=== PATIENT | male | born 1955 | race Caucasian/White ===

== ENCOUNTER 2020-01-11 15:14 | Inpatient (IN) | payer OTHER, MEDICARE ==
[2020-01-11] MEDS ORDERED: HYDROmorphone 1 MG/ML 1 ML SYRINGE IVP STA (15:21)
[2020-01-11] MEDS ORDERED: SODIUM CHLORIDE 0.9% 1,000 ML IV STA (15:21)
[2020-01-11] MEDS ORDERED: DIPH,PERTUS(ACELL)TETVAC-LF 0.5 ML VIAL IM ONE (15:21)
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
[2020-01-11] MEDS ORDERED: BACITRACIN/POLYMYX 500-10,000 UNIT/GM OINT 14 GM TUBE TOPICAL STA (15:43)
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
[2020-01-11 16:12] LABS: Basophils # (A) 0.1 k/uL (0-0.2); Basophils % (A) 1 %; Eosinophils # (A) 0.1 k/uL (0-0.7); Eosinophils % (A) 1 %; HCT 46.9 % (39.0-53.0); HGB 14.9 gm/dL (13.0-17.5); Lymphocytes # (A) 3.4 k/uL (1.0-4.8); Lymphocytes % (A) 16 %; MCH 30.2 pg (25.0-35.0); MCHC 31.7 g/dL (31.0-37.0); Mean Platelet Volume 7.5; Monocytes # (A) 0.6 k/uL (0-1.0); Monocytes % (A) 3 %; Neutrophils # (A) 17.3 k/uL (1.3-7.7); Neutrophils % (A) 80 %; Platelet Count 299 k/uL (150-450); RBC 4.93 m/uL (4.30-5.90); RDW 12.7 % (11.5-15.5); WBC 21.6 k/uL (3.8-10.6)
[2020-01-11 16:20] LABS: ALT 259 U/L (4-49); AST 271 U/L (17-59); African American GFR (CKD) >90 (>60 ml/min/1.73 sqM); Albumin 4.4 g/dL (3.5-5.0); Alcohol <10 mg/dL; Alkaline Phosphatase 77 U/L (38-126); Amylase 48 U/L (30-110); Anion Gap 7 mmol/L; Blood Urea Nitrogen 20 mg/dL (9-20); Calcium 9.5 mg/dL (8.4-10.2); Carbon Dioxide 26 mmol/L (22-30); Chloride 105 mmol/L (98-107); Glucose 162 mg/dL (74-99); Non-African American GFR(CKD) 80 (>60 ml/min/1.73 sqM); Potassium 4.2 mmol/L (3.5-5.1); Sodium 138 mmol/L (137-145); Total Bilirubin 0.4 mg/dL (0.2-1.3); Total Protein 7.2 g/dL (6.3-8.2)
[2020-01-11 16:24] LABS: INR 0.9 (<1.2); Partial Thromboplastin Time 21.9 sec (22.0-30.0); Prothrombin Time 9.6 sec (9.0-12.0)
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
[2020-01-11 16:43] LABS: Creatine Kinase 476 U/L (55-170)
[2020-01-11 16:52] LABS: Creatine Kinase MB 5.7 ng/mL (0.0-2.4)
[2020-01-11 16:56] LABS: Troponin I <0.012 ng/mL (0.000-0.034)
[2020-01-11] MEDS ORDERED: NALOXONE 0.4 MG/ML 1 ML VIAL IV PRN (17:03)
[2020-01-11] MEDS ORDERED: ONDANSETRON 4 MG/2 ML VIAL IVP PRN (17:03)
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
--- NOTE | 2020-01-11 17:39 | XR ---
EXAMINATION TYPE: XR shoulder complete RT DATE OF EXAM: 01/11/2020 COMPARISON: NONE HISTORY: Trauma TECHNIQUE: 4 views FINDINGS: There is comminuted fracture mid shaft of the right clavicle. There is comminuted fracture of the scapula including the glenoid. There is no dislocation. Humeral head is intact. There are mult iple right upper rib fractures. There is pleural thickening in the right upper lobe. There is atelect asis right lung base. IMPRESSION: Comminuted shoulder fracture as above. Rib fractures. Clavicle comminuted fracture.
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
[2020-01-11] MEDS: HYDROmorphone 1 MG/ML 1 ML SYRINGE IVP PRN ×2 (17:44→22:49)
[2020-01-11 18:06] LABS: Appearance,Urine Clear (Clear); Bacteria,Urine Rare /hpf; Bilirubin,Urine Negative (Negative); Blood,Urine Small (Negative); Color,Urine Yellow; Glucose,Urine (UA) Negative (Negative); Hyaline Casts,Urine 14 /lpf (0-2); Ketones,Urine Negative (Negative); Leukocyte Esterase,Urine Negative (Negative); Mucus,Urine Occasional /hpf; Nitrite,Urine Negative (Negative); PH, Urine 5.5 (5.0-8.0); Protein,Urine 1+ (Negative); RBC,Urine 4 /hpf (0-5); Specific Gravity,Urine 1.029 (1.001-1.035); Sperm,Urine Rare /hpf; Squamous Epithelial Cell,Urine <1 /hpf (0-4); Urobilinogen,Urine <2.0 mg/dL (<2.0); WBC,Urine 4 /hpf (0-5)
[2020-01-11 18:13] LABS: Amphetamine Screen,Urine Not Detected (NotDetected); Barbiturate Screen,Urine Not Detected (NotDetected); Benzodiazepines Screen,Urine Not Detected (NotDetected); Cocaine Screen,Urine Not Detected (NotDetected); Methadone Screen, Urine Not Detected (NotDetected); Opiate Screen,Urine Detected (NotDetected); Oxycodone Screen, Urine Not Detected (NotDetected); Phencyclidine Screen,Urine Not Detected (NotDetected); Tricyclic Antidepressant,Urine Not Detected (NotDetected); Urn Cannabinoid Scrn Not Detected (NotDetected)
[2020-01-11 18:49] LABS: Glucose,Whole Blood 163 mg/dL (75-99)
[2020-01-11] MEDS: HYDROcodone/APAP 5-325MG 1 EACH TAB PO PRN ×2 (18:58→22:49)
[2020-01-11] MEDS ORDERED: FUROSEMIDE 10 MG/ML 2 ML VIAL IV ONE (20:51)
[2020-01-11] MEDS: FAMOTIDINE 20 MG TAB PO SCH (22:45)
[2020-01-12] MEDS: KETOROLAC 15 MG/ML 1 ML VIAL IVP SCH ×2 (00:58→06:57)
[2020-01-12] MEDS: HYDROmorphone 1 MG/ML 1 ML SYRINGE IVP PRN ×2 (03:38→12:05)
[2020-01-12] MEDS: HYDROcodone/APAP 5-325MG 1 EACH TAB PO PRN ×4 (03:38→20:15)
[2020-01-12 05:14] LABS: Basophils # (A) 0.1 k/uL (0-0.2); Basophils % (A) 0 %; Eosinophils % (A) 0 %; HCT 43.9 % (39.0-53.0); HGB 14.5 gm/dL (13.0-17.5); Lymphocytes # (A) 1.4 k/uL (1.0-4.8); Lymphocytes % (A) 9 %; MCH 32.1 pg (25.0-35.0); MCHC 33.1 g/dL (31.0-37.0); Mean Platelet Volume 9.4; Monocytes # (A) 0.7 k/uL (0-1.0); Monocytes % (A) 4 %; Neutrophils # (A) 12.8 k/uL (1.3-7.7); Neutrophils % (A) 85 %; Platelet Count 240 k/uL (150-450); RBC 4.52 m/uL (4.30-5.90); RDW 13.1 % (11.5-15.5); WBC 15.1 k/uL (3.8-10.6)
[2020-01-12 05:37] LABS: ALT 216 U/L (4-49); AST 199 U/L (17-59); African American GFR (CKD) >90 (>60 ml/min/1.73 sqM); Albumin 4.1 g/dL (3.5-5.0); Alkaline Phosphatase 55 U/L (38-126); Anion Gap 9 mmol/L; Blood Urea Nitrogen 26 mg/dL (9-20); Calcium 8.7 mg/dL (8.4-10.2); Carbon Dioxide 22 mmol/L (22-30); Chloride 105 mmol/L (98-107); Glucose 185 mg/dL (74-99); Non-African American GFR(CKD) >90 (>60 ml/min/1.73 sqM); Sodium 136 mmol/L (137-145); Total Bilirubin 0.9 mg/dL (0.2-1.3)
[2020-01-12 05:47] LABS: Potassium 5.5 mmol/L (3.5-5.1)
--- NOTE | 2020-01-12 07:36 | XR ---
EXAMINATION TYPE: XR chest 1V portable DATE OF EXAM: 01/12/2020 HISTORY: Pulmonary contusion, pneumothorax COMPARISON: 01/11/2020 TECHNIQUE: Single view of the chest is submitted. FINDINGS: There is progressive right-sided pneumothorax now estimated at 25%. There is right perihilar infiltra te/contusion. Left basilar atelectasis noted. There is no evidence for focal infiltrate. The heart is stable. Hilar and mediastinal structures are within normal limits. Previously described right-sided rib fractures. IMPRESSION: 1. Progressive right-sided pneumothorax now estimated at 25%. Right perihilar infiltrate/contusion i n left basilar atelectasis. A [place] critical message alert has been initiated for Glenn Marques MD via the [employer] System on 01/12/2020 7:33 AM. This message alert has been sent to Glenn Marques MD via th e preferences provided by the clinician for the receipt of Radiology Critical Findings. Message ID [id number].
[2020-01-12] MEDS ORDERED: LIDOCAINE 1% INJ 10MG/ML (20 ML MDV) ONE (08:34)
--- NOTE | 2020-01-12 09:05 | XR ---
EXAMINATION TYPE: XR chest 1V portable DATE OF EXAM: 01/12/2020 HISTORY: Pneumothorax follow-up COMPARISON: January 12, 2020 TECHNIQUE: Single view of the chest is submitted. FINDINGS: Right-sided pleural catheter is in place. Previously described right-sided pneumothorax is much impro [place] and is now estimated at less than 10%. Persistent areas of infiltrate and/or atelectasis. The heart is stable. Hilar and mediastinal structures are within normal limits. Degenerative changes are seen of the dorsal spine. IMPRESSION: 1. Right-sided pleural catheter is in place. Previously described right-sided pneumothorax is much i mproved and is now estimated at less than 10%. Persistent areas of infiltrate and/or atelectasis.
[2020-01-12] MEDS: FAMOTIDINE 20 MG TAB PO SCH ×2 (09:51→20:17)
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
[2020-01-12] MEDS: HYDROmorphone 0.5 MG/0.5 ML SYRINGE IVP PRN ×4 (14:36→22:41)
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
[2020-01-13 03:30] LABS: Glucose,Whole Blood 145 mg/dL (75-99)
[2020-01-13] MEDS: HYDROcodone/APAP 5-325MG 1 EACH TAB PO PRN ×2 (03:56→21:54)
[2020-01-13 05:16] LABS: HCT 38.5 % (39.0-53.0); HGB 12.4 gm/dL (13.0-17.5); MCH 31.2 pg (25.0-35.0); MCHC 32.2 g/dL (31.0-37.0); Mean Platelet Volume 7.6; Platelet Count 170 k/uL (150-450); RBC 3.97 m/uL (4.30-5.90); RDW 12.8 % (11.5-15.5); WBC 12.7 k/uL (3.8-10.6)
[2020-01-13 05:32] LABS: ALT 143 U/L (4-49); AST 87 U/L (17-59); African American GFR (CKD) >90 (>60 ml/min/1.73 sqM); Albumin 3.4 g/dL (3.5-5.0); Alkaline Phosphatase 60 U/L (38-126); Anion Gap 6 mmol/L; Blood Urea Nitrogen 20 mg/dL (9-20); Calcium 8.1 mg/dL (8.4-10.2); Carbon Dioxide 25 mmol/L (22-30); Chloride 100 mmol/L (98-107); Glucose 135 mg/dL (74-99); Non-African American GFR(CKD) >90 (>60 ml/min/1.73 sqM); Potassium 4.9 mmol/L (3.5-5.1); Sodium 131 mmol/L (137-145); Total Bilirubin 0.6 mg/dL (0.2-1.3); Total Protein 5.9 g/dL (6.3-8.2)
--- NOTE | 2020-01-13 07:24 | XR ---
EXAMINATION TYPE: XR chest 1V portable DATE OF EXAM: 01/13/2020 Comparison: 01/12/2020 Clinical History: 64-year-old male Right-sided pneumothorax Findings: Multiple right-sided rib fractures. Thoracolumbar fusion hardware. Continued small right apical pneum othorax measuring 4 mm. Pleur-evac catheter is present. Heart borderline enlarged with low lung volum es, cardiovascular markings, and strandy atelectasis at the lung bases. Comminuted fracture right mid clavicular shaft and right scapula. Impression: 1. Right-sided Thoravent device with continued small 4 mm right apical pneumothorax. 2. Multiple right-sided rib fractures, comminuted fracture right mid clavicular shaft, and fracture o f the right scapula redemonstrated. 3. Hypoventilatory changes.
[2020-01-13] MEDS: FAMOTIDINE 20 MG TAB PO SCH ×2 (08:54→20:13)
[2020-01-13] MEDS: HYDROmorphone 0.5 MG/0.5 ML SYRINGE IVP PRN ×8 (08:54→20:13)
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
[2020-01-13] MEDS: ENOXAPARIN 40 MG/0.4 ML SYRINGE SQ SCH (16:05)
[2020-01-13] MEDS: DOCUSATE 100 MG CAP PO SCH (20:13)
[2020-01-13] MEDS: BACITRACIN/POLYMYX 500-10,000 UNIT/GM OINT 14 GM TUBE TOPICAL SCH (20:15)
--- NOTE | 2020-01-13 22:26 | CT ---
EXAMINATION TYPE: CT shoulder RT wo con DATE OF EXAM: 01/13/2020 COMPARISON: None HISTORY: Right shoulder pain. CT DLP: 1154.9 mGycm Automated exposure control for dose reduction was used. Images were obtained from the top of the shoulder joint to the mid shaft of the humerus without contr ast. There is comminuted fracture of the glenoid. There is no dislocation. Glenoid fracture fragments are impacted and displaced up to 1 cm. T there is comminuted displaced fracture of the body of the scapula also. Here are multiple right upp er comminuted rib fractures. These involve the first to fifth ribs. There is evidence for flail chest . There is right side moderate pleural effusion and right pulmonary atelectasis. I see no pneumothora x. There is right anterior chest tube. The chest tube appears to be outside of the pleural space in t he anterior right upper lobe region. There are a few soft tissue air bubbles on the right anterior up per chest. The proximal humerus is intact. IMPRESSION: Comminuted impacted glenoid fracture of the scapula. Multiple comminuted right-sided rib fractures wi th flail chest. Right pleural effusion. No pneumothorax. Malposition of the right chest tube that aisha ears to be outside of the parietal pleura.
[2020-01-14] MEDS: HYDROcodone/APAP 5-325MG 1 EACH TAB PO PRN ×5 (01:37→20:56)
[2020-01-14] MEDS: HYDROmorphone 0.5 MG/0.5 ML SYRINGE IVP PRN ×2 (05:39→19:35)
[2020-01-14 06:39] LABS: HCT 35.8 % (39.0-53.0); HGB 11.5 gm/dL (13.0-17.5); MCH 31.2 pg (25.0-35.0); MCHC 32.3 g/dL (31.0-37.0); MCV 96.6 fL (80.0-100.0); Mean Platelet Volume 8.1; Platelet Count 196 k/uL (150-450); RDW 12.9 % (11.5-15.5); WBC 11.7 k/uL (3.8-10.6)
[2020-01-14 07:00] LABS: African American GFR (CKD) >90 (>60 ml/min/1.73 sqM); Anion Gap 5 mmol/L; Blood Urea Nitrogen 15 mg/dL (9-20); Calcium 8.2 mg/dL (8.4-10.2); Carbon Dioxide 29 mmol/L (22-30); Chloride 98 mmol/L (98-107); Glucose 121 mg/dL (74-99); Non-African American GFR(CKD) >90 (>60 ml/min/1.73 sqM); Potassium 4.7 mmol/L (3.5-5.1); Sodium 132 mmol/L (137-145)
--- NOTE | 2020-01-14 07:23 | XR ---
EXAMINATION TYPE: XR chest 1V portable DATE OF EXAM: 01/14/2020 Comparison: 01/13/2020 Clinical History: 64-year-old male Right-sided pneumothorax Findings: Thoracic fusion hardware is present. Known comminuted fracture right clavicular shaft, right scapula, multiple right-sided ribs. Better seen fractures of multiple left-sided ribs and mid to inferior lef t scapula. A vertically oriented linear density noted projecting at the periphery of the left mid to lower lung likely corresponds to underlying scapular fracture. Right-sided pleural catheter remains in place. Previously seen small right apical pneumothorax no erika mamie identified. Heart mildly enlarged. Patchy peripheral left greater than right basilar densities remain. Impression: 1. Right-sided pleural catheter in place. Previously visualized tiny right apical pneumothorax no erika mamie seen. 2. Fractures of the right clavicle, right scapula, multiple right greater than left ribs, and mid to inferior left scapula is demonstrated.
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
[2020-01-14] MEDS: FAMOTIDINE 20 MG TAB PO SCH ×2 (09:55→20:50)
[2020-01-14] MEDS: DOCUSATE 100 MG CAP PO SCH ×2 (09:55→20:50)
[2020-01-14] MEDS: BACITRACIN/POLYMYX 500-10,000 UNIT/GM OINT 14 GM TUBE TOPICAL SCH (09:55)
[2020-01-14] MEDS: ENOXAPARIN 40 MG/0.4 ML SYRINGE SQ SCH (09:55)
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
--- NOTE | 2020-01-14 12:12 | XR ---
EXAMINATION TYPE: XR chest 1V portable DATE OF EXAM: 01/14/2020 Comparison: Earlier today Clinical History: 64-year-old male follow-up postop Thoravent, please complete at 9 am Findings: Posterior thoracic spinal fusion hardware. Redemonstrated comminuted fracture right scapula, right mi d clavicular shaft, mid inferior left scapula, and multiple bilateral ribs. Heart remains upper limits of normal in size. Mild patchy bibasilar densities. No sizable effusion. N o discrete pneumothorax is identified. Right-sided Thoravent remains in place. Impression: Mild patchy bibasilar opacities, likely atelectasis. Right-sided Thoravent remains in place. No appre ciable pneumothorax. Multiple known fractures as above.
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
[2020-01-15] MEDS: HYDROmorphone 0.5 MG/0.5 ML SYRINGE IVP PRN ×6 (00:22→23:37)
[2020-01-15] MEDS: HYDROcodone/APAP 5-325MG 1 EACH TAB PO PRN ×4 (01:16→19:09)
[2020-01-15 06:25] LABS: HCT 32.5 % (39.0-53.0); HGB 10.8 gm/dL (13.0-17.5); MCH 31.8 pg (25.0-35.0); MCHC 33.3 g/dL (31.0-37.0); MCV 95.7 fL (80.0-100.0); Mean Platelet Volume 7.8; Platelet Count 199 k/uL (150-450); RDW 12.8 % (11.5-15.5); WBC 9.3 k/uL (3.8-10.6)
[2020-01-15 06:52] LABS: African American GFR (CKD) >90 (>60 ml/min/1.73 sqM); Anion Gap 3 mmol/L; Blood Urea Nitrogen 16 mg/dL (9-20); Carbon Dioxide 33 mmol/L (22-30); Chloride 96 mmol/L (98-107); Glucose 118 mg/dL (74-99); Non-African American GFR(CKD) >90 (>60 ml/min/1.73 sqM); Potassium 4.7 mmol/L (3.5-5.1); Sodium 132 mmol/L (137-145)
[2020-01-15] MEDS: DOCUSATE 100 MG CAP PO SCH ×2 (07:53→20:39)
[2020-01-15] MEDS: ENOXAPARIN 40 MG/0.4 ML SYRINGE SQ SCH (07:53)
[2020-01-15] MEDS: FAMOTIDINE 20 MG TAB PO SCH ×2 (07:53→20:39)
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
[2020-01-15] MEDS: BACITRACIN/POLYMYX 500-10,000 UNIT/GM OINT 14 GM TUBE TOPICAL SCH (11:06)
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
[2020-01-15] MEDS: METOPROLOL TARTRATE 25 MG TAB PO SCH ×2 (11:15→20:38)
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
[2020-01-15] MEDS: SENNOSIDES 8.6 MG TAB PO PRN (20:38)
[2020-01-16] MEDS: HYDROcodone/APAP 5-325MG 1 EACH TAB PO PRN ×4 (00:58→23:41)
[2020-01-16 06:55] LABS: HCT 33.6 % (39.0-53.0); HGB 10.9 gm/dL (13.0-17.5); MCH 31.2 pg (25.0-35.0); MCHC 32.5 g/dL (31.0-37.0); MCV 96.2 fL (80.0-100.0); Mean Platelet Volume 7.7; Platelet Count 255 k/uL (150-450); RBC 3.49 m/uL (4.30-5.90); RDW 13.1 % (11.5-15.5); WBC 11.5 k/uL (3.8-10.6)
[2020-01-16 07:10] LABS: African American GFR (CKD) >90 (>60 ml/min/1.73 sqM); Anion Gap 4 mmol/L; Blood Urea Nitrogen 18 mg/dL (9-20); Carbon Dioxide 32 mmol/L (22-30); Chloride 95 mmol/L (98-107); Glucose 116 mg/dL (74-99); Non-African American GFR(CKD) >90 (>60 ml/min/1.73 sqM); Potassium 4.6 mmol/L (3.5-5.1); Sodium 131 mmol/L (137-145)
[2020-01-16] MEDS: ENOXAPARIN 40 MG/0.4 ML SYRINGE SQ SCH (08:30)
[2020-01-16] MEDS: DOCUSATE 100 MG CAP PO SCH ×2 (08:30→20:56)
[2020-01-16] MEDS: METOPROLOL TARTRATE 25 MG TAB PO SCH ×2 (08:31→20:56)
[2020-01-16] MEDS: HYDROmorphone 0.5 MG/0.5 ML SYRINGE IVP PRN ×8 (08:31→22:06)
[2020-01-16] MEDS: FAMOTIDINE 20 MG TAB PO SCH ×2 (08:31→20:55)
[2020-01-16] MEDS ORDERED: MAGNESIUM CITRATE 296 ML BOTTLE PO ONE (10:48)
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
[2020-01-16] MEDS: BACITRACIN/POLYMYX 500-10,000 UNIT/GM OINT 14 GM TUBE TOPICAL SCH (11:04)
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
[2020-01-16] MEDS: SENNOSIDES 8.6 MG TAB PO PRN (20:56)
[2020-01-16] MEDS: BACITRACIN ZINC 500 UNIT/GM OINT 28.4 GM TUBE TOPICAL SCH (20:56)
[2020-01-17] MEDS: HYDROmorphone 0.5 MG/0.5 ML SYRINGE IVP PRN ×5 (02:06→10:56)
[2020-01-17] MEDS: HYDROcodone/APAP 5-325MG 1 EACH TAB PO PRN ×2 (04:17→08:30)
[2020-01-17 07:06] LABS: Basophils # (A) 0.1 k/uL (0-0.2); Basophils % (A) 1 %; Eosinophils # (A) 0.3 k/uL (0-0.7); Eosinophils % (A) 3 %; HCT 34.4 % (39.0-53.0); HGB 10.8 gm/dL (13.0-17.5); Lymphocytes # (A) 1.8 k/uL (1.0-4.8); Lymphocytes % (A) 15 %; MCH 30.4 pg (25.0-35.0); MCHC 31.5 g/dL (31.0-37.0); MCV 96.4 fL (80.0-100.0); Mean Platelet Volume 7.5; Monocytes % (A) 8 %; Neutrophils # (A) 8.8 k/uL (1.3-7.7); Neutrophils % (A) 72 %; Platelet Count 274 k/uL (150-450); RBC 3.57 m/uL (4.30-5.90); RDW 13.2 % (11.5-15.5); WBC 12.3 k/uL (3.8-10.6)
[2020-01-17 07:20] LABS: ALT 53 U/L (4-49); AST 36 U/L (17-59); African American GFR (CKD) >90 (>60 ml/min/1.73 sqM); Albumin 3.2 g/dL (3.5-5.0); Alkaline Phosphatase 72 U/L (38-126); Anion Gap 4 mmol/L; Bilirubin, Delta 0.3 mg/dL (0.0-0.2); Bilirubin,Unconjugated 0.5 mg/dL (0.0-1.1); Blood Urea Nitrogen 24 mg/dL (9-20); Calcium 8.3 mg/dL (8.4-10.2); Carbon Dioxide 33 mmol/L (22-30); Chloride 93 mmol/L (98-107); Glucose 119 mg/dL (74-99); Non-African American GFR(CKD) >90 (>60 ml/min/1.73 sqM); Sodium 130 mmol/L (137-145); Total Bilirubin 0.8 mg/dL (0.2-1.3); Total Protein 5.9 g/dL (6.3-8.2)
[2020-01-17] MEDS: METOPROLOL TARTRATE 25 MG TAB PO SCH ×2 (08:31→20:23)
[2020-01-17] MEDS: DOCUSATE 100 MG CAP PO SCH ×2 (08:31→20:23)
[2020-01-17] MEDS: ENOXAPARIN 40 MG/0.4 ML SYRINGE SQ SCH (08:31)
[2020-01-17] MEDS: FAMOTIDINE 20 MG TAB PO SCH ×2 (08:31→20:23)
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
[2020-01-17] MEDS: KETOROLAC 15 MG/ML 1 ML VIAL IVP SCH ×3 (12:47→23:58)
[2020-01-17] MEDS: BACITRACIN ZINC 500 UNIT/GM OINT 28.4 GM TUBE TOPICAL SCH (20:23)
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
[2020-01-18] MEDS: HYDROcodone/APAP 5-325MG 1 EACH TAB PO PRN ×2 (00:02→09:29)
[2020-01-18] MEDS: KETOROLAC 15 MG/ML 1 ML VIAL IVP SCH ×4 (05:41→23:58)
[2020-01-18 07:35] LABS: Basophils # (A) 0.1 k/uL (0-0.2); Basophils % (A) 0 %; Eosinophils # (A) 0.5 k/uL (0-0.7); Eosinophils % (A) 4 %; HCT 33.6 % (39.0-53.0); Lymphocytes % (A) 17 %; MCH 31.4 pg (25.0-35.0); MCHC 32.7 g/dL (31.0-37.0); Mean Platelet Volume 7.2; Monocytes # (A) 0.7 k/uL (0-1.0); Monocytes % (A) 6 %; Neutrophils # (A) 8.3 k/uL (1.3-7.7); Neutrophils % (A) 71 %; Platelet Count 296 k/uL (150-450); RDW 13.2 % (11.5-15.5); WBC 11.7 k/uL (3.8-10.6)
[2020-01-18 07:56] LABS: ALT 48 U/L (4-49); AST 32 U/L (17-59); African American GFR (CKD) >90 (>60 ml/min/1.73 sqM); Alkaline Phosphatase 63 U/L (38-126); Anion Gap 7 mmol/L; Bilirubin, Delta 0.3 mg/dL (0.0-0.2); Bilirubin,Unconjugated 0.5 mg/dL (0.0-1.1); Blood Urea Nitrogen 30 mg/dL (9-20); Calcium 8.2 mg/dL (8.4-10.2); Carbon Dioxide 31 mmol/L (22-30); Chloride 93 mmol/L (98-107); Glucose 107 mg/dL (74-99); Non-African American GFR(CKD) >90 (>60 ml/min/1.73 sqM); Potassium 4.6 mmol/L (3.5-5.1); Sodium 131 mmol/L (137-145); Total Bilirubin 0.8 mg/dL (0.2-1.3); Total Protein 5.6 g/dL (6.3-8.2)
[2020-01-18] MEDS: FAMOTIDINE 20 MG TAB PO SCH ×2 (08:49→22:35)
[2020-01-18] MEDS: ENOXAPARIN 40 MG/0.4 ML SYRINGE SQ SCH (08:49)
[2020-01-18] MEDS: DOCUSATE 100 MG CAP PO SCH ×2 (08:49→22:35)
[2020-01-18] MEDS: METOPROLOL TARTRATE 25 MG TAB PO SCH ×2 (08:50→22:35)
[2020-01-18] MEDS: BACITRACIN ZINC 500 UNIT/GM OINT 28.4 GM TUBE TOPICAL SCH ×2 (08:55→22:37)
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
[2020-01-18 14:36] VITALS: BMI 37.6
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
[2020-01-18] MEDS: HYDROmorphone 0.5 MG/0.5 ML SYRINGE IVP PRN (22:29)
[2020-01-19] MEDS: HYDROcodone/APAP 5-325MG 1 EACH TAB PO PRN ×3 (03:04→13:09)
[2020-01-19 05:06] VITALS: BP 158/80; PULSE 78; RESP 16; TEMP 97.4
[2020-01-19] MEDS: KETOROLAC 15 MG/ML 1 ML VIAL IVP SCH ×2 (05:46→13:20)
[2020-01-19] MEDS: FAMOTIDINE 20 MG TAB PO SCH (08:37)
[2020-01-19] MEDS: ENOXAPARIN 40 MG/0.4 ML SYRINGE SQ SCH (08:37)
[2020-01-19] MEDS: DOCUSATE 100 MG CAP PO SCH (08:38)
[2020-01-19] MEDS: METOPROLOL TARTRATE 25 MG TAB PO SCH (08:38)
[2020-01-19 09:32] LABS: Basophils # (A) 0.1 k/uL (0-0.2); Basophils % (A) 1 %; Eosinophils # (A) 0.5 k/uL (0-0.7); Eosinophils % (A) 6 %; HCT 34.9 % (39.0-53.0); HGB 11.1 gm/dL (13.0-17.5); Lymphocytes % (A) 22 %; MCH 30.9 pg (25.0-35.0); MCHC 31.8 g/dL (31.0-37.0); MCV 97.2 fL (80.0-100.0); Mean Platelet Volume 6.9; Monocytes # (A) 0.6 k/uL (0-1.0); Monocytes % (A) 6 %; Neutrophils % (A) 64 %; Platelet Count 317 k/uL (150-450); RBC 3.59 m/uL (4.30-5.90); RDW 13.4 % (11.5-15.5); WBC 9.3 k/uL (3.8-10.6)
[2020-01-19 10:01] LABS: ALT 44 U/L (4-49); AST 30 U/L (17-59); African American GFR (CKD) >90 (>60 ml/min/1.73 sqM); Albumin 3.1 g/dL (3.5-5.0); Alkaline Phosphatase 72 U/L (38-126); Anion Gap 5 mmol/L; Bilirubin, Delta 0.1 mg/dL (0.0-0.2); Bilirubin,Unconjugated 0.5 mg/dL (0.0-1.1); Blood Urea Nitrogen 26 mg/dL (9-20); Calcium 8.6 mg/dL (8.4-10.2); Carbon Dioxide 34 mmol/L (22-30); Chloride 97 mmol/L (98-107); Glucose 102 mg/dL (74-99); Non-African American GFR(CKD) >90 (>60 ml/min/1.73 sqM); Potassium 4.8 mmol/L (3.5-5.1); Sodium 136 mmol/L (137-145); Total Bilirubin 0.6 mg/dL (0.2-1.3); Total Protein 5.7 g/dL (6.3-8.2)
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
== END 2020-01-19 14:25 | disposition home health service (06) | DRG 199 ==
LOC: EC 15:14 → 2SICU 17:03 → 6NMEDSUR 01-14 14:55
PROVIDERS: ADMIT Surgery; ATTEND Surgery
PROC: 0W9930Z Drainage of Right Pleural Cavity with Drainage Device, Percutaneous Approach (ICD-10-PCS; principal; 2020-01-12 12:50)
DX: S27.2XXA Traumatic hemopneumothorax, initial encounter (principal); S22.5XXA Flail chest, initial encounter for closed fracture; J96.01 Acute respiratory failure with hypoxia; S27.329A Contusion of lung, unspecified, initial encounter; J90 Pleural effusion, not elsewhere classified; J98.11 Atelectasis; S42.141A Displaced fracture of glenoid cavity of scapula, right shoulder, initial encounter for closed fracture; S42.001A Fracture of unspecified part of right clavicle, initial encounter for closed fracture; K59.00 Constipation, unspecified; V20.4XXA Motorcycle driver injured in collision with pedestrian or animal in traffic accident, initial encounter; Y92.410 Unspecified street and highway as the place of occurrence of the external cause; Y93.89 Activity, other specified; Z87.891 Personal history of nicotine dependence; Z98.890 Other specified postprocedural states; Z98.1 Arthrodesis status
CPT/HCPCS: 36410; 36415; 70450; 71045; 71260; 72125; 72170; 74177; 80048; 80053; 80076; 80306; 80320; 81001; 82150; 82550; 82553; 83605; 83690; 84484; 85025; 85027; 85610; 85730; 86850; 86900; 86901; 90471; 90715; 96361; 96374; 96376; 99291

== ENCOUNTER → 2020-04-14 | Outpatient (CLI) | payer OTHER ==
--- NOTE | 2020-04-14 15:12 | US ---
EXAMINATION TYPE: US scrotum with doppler. Grayscale and color Doppler Duplex imaging performed of t he scrotum. DATE OF EXAM: 04/14/2020 COMPARISON: NONE CLINICAL HISTORY: N50.819 TESTICULAR PAIN. Pt states right testicle pain x 2 years EXAM MEASUREMENTS: TESTICLES: Right Testicle: 3.6 x 2.0 x 3.6 cm cm Left Testicle: 4.5 x 2.2 x 3.0 cm EPIDIDYMIS HEAD: Right Epididymis: 1.0 cm Left Epididymis: 0.9 cm Doppler performed to assess for testicular vascularity; good bilateral color flow and waveforms are s een. Presence of hydroceles: No Presence of varicoceles: Yes, lateral to left testicle Right epi head cyst= 0.5 x 0.4 x 0.5 cm Left testicle rete testes= 2.5 x 0.9 x 1.7 cm Large cystic mass inferior to left testicle= 4.1 x 3.0 x 5.8 cm , etiology uncertain. Possible loca lized scrotal nonsimple fluid collection. No concerning right-sided testicular mass. Satisfactory blood flow to both testicles on images saved. Comparison view not performed making evaluation suboptimal. IMPRESSION: No suspicious increased or decreased blood flow to right testicle.
== END | disposition home or self-care (01) ==
LOC: RADUSWWP 14:39
PROVIDERS: ATTEND Family Medicine
DX: N50.811 Right testicular pain (principal)
CPT/HCPCS: 76870; 93975